=== PATIENT | female | born 1995 | race Caucasian/White ===

== ENCOUNTER 2024-01-21 12:27 | Emergency (ER) | payer OTHER ==
[~2024-01-21] VITALS: Ht 167.6 cm; Wt 88.7 kg
[2024-01-21 12:39] VITALS: BP 108/68; PULSE 53; RESP 17; TEMP 98.1; O2SAT 98
[2024-01-21] MEDS: ACETAMINOPHEN EXTRA STRENGTH 500 MG TAB PO ONE (14:01)
[2024-01-21 14:20] LABS: APPEARANCE,URINE SLIGHTLY HAZY (CLEAR); BILIRUBIN,URINE NEGATIVE (NEGATIVE); BLOOD, URINE NEGATIVE (NEGATIVE); COLOR,URINE YELLOW (YELLOW); LEUKOCYTE ESTERASE ,URINE TRACE (NEGATIVE); NITRITE, URINE NEGATIVE (NEGATIVE); PROTEIN,URINE NEGATIVE (NEGATIVE); UGLUCOSE NEGATIVE (NEGATIVE); UROBILINOGEN,URINE 0.2 EU/dL (0.2 - 1)
[2024-01-21 14:28] LABS: BACTERIA,URINE 1+ /HPF (None Seen); MUCUS,URINE None Seen /LPF (None Seen); RBC,URINE 0 /HPF (0-5); SQUAMOUS EPITHELIAL CELL,UR 0-3 (FEW) /LPF (0-3 (FEW)); WBC,URINE 0-5 /HPF (0-5)
[2024-01-21] MEDS ORDERED: ACET-10509 PO (14:45)
[2024-01-21] MEDS ORDERED: CEPH250C16 PO (14:48)
[2024-01-21 15:13] VITALS: BP 111/68; PULSE 60; RESP 16; TEMP 98.1; O2SAT 99
== END 2024-01-21 15:13 | disposition home or self-care (01) ==
LOC: MED 12:27
DX: O9A.212 Injury, poisoning and certain other consequences of external causes complicating pregnancy, second trimester (principal); S89.91XA Unspecified injury of right lower leg, initial encounter; O23.12 Infections of bladder in pregnancy, second trimester; N30.00 Acute cystitis without hematuria; Z3A.24 24 weeks gestation of pregnancy; Z79.899 Other long term (current) drug therapy; W01.0XXA Fall on same level from slipping, tripping and stumbling without subsequent striking against object, initial encounter; Y92.89 Other specified places as the place of occurrence of the external cause; Y93.89 Activity, other specified; Y99.0 Civilian activity done for income or pay
CPT/HCPCS: 73562; 81001; 81025; 99284